=== PATIENT | female | born 1995 | race Hispanic/Latino ===

== ENCOUNTER 2021-05-29 12:44 | Emergency (ER) | payer BC ==
[~2021-05-29] VITALS: Ht 167.6 cm; Wt 97.5 kg
[2021-05-29] MEDS ORDERED: IBUPROFEN 400 MG TAB ONE (13:06)
[2021-05-29] MEDS ORDERED: ACETAMINOPHEN 325 MG TAB ONE (13:07)
[2021-05-29] MEDS ORDERED: IBUPROFEN 400 MG TAB PO ONE (13:15)
[2021-05-29] MEDS ORDERED: TAMIFLU75 MG PO (13:55)
[2021-05-29] MEDS ORDERED: ONDANSETRON ODT4 MG PO (13:56)
[2021-05-29] MEDS ORDERED: ACETAMINOPHEN 325 MG TAB PO ONE (14:00)
== END 2021-05-29 14:16 | disposition home or self-care (01) ==
LOC: FSED 12:51
DX: R50.9 Fever, unspecified (principal); J10.1 Influenza due to other identified influenza virus with other respiratory manifestations; R51.9 Headache, unspecified
CPT/HCPCS: 83518; 99283